=== PATIENT | male | born 1960 | race Caucasian/White ===

== ENCOUNTER 2017-10-19 20:25 | Emergency (ER) | payer MEDICARE, OTHER ==
[~2017-10-19] VITALS: Ht 193 cm; Wt 136.1 kg
[~2017-10-19 20:25] MED LIST: AMOX1TAB61 PO; DIAZ5TAB4 PO; FENT1PAT21 TP; GABA600T14 PO; METF500T4 PO; MODA200T2 PO; OLME1TAB25 PO; [UNRECOGNIZED DRUG - CODE] BC
--- NOTE | 2017-10-19 21:42 | PHYS DOC ---
Past Medical History Past Medical History: COPD, Hypertension Additional Past Medical Histor: CHRONIC BACK PAIN Past Surgical History: Appendectomy, Tonsillectomy Additional Past Surgical Histo: Lumbar; Right foot Smoking: Cigarettes Alcohol Use: Occasionally Drug Use: None Social History Narrative: Lives with daughter Adult General Chief Complaint Chief Complaint: SYNCOPE HPI HPI Patient is a 57 year old male who presents with daughter for left ankle pain and swelling. He was originally put into the fast track area however he then gave a history that he passed out today earlier. He was then transferred to the acute side for further evaluation. However patient arrived to the acute side he refused all other evaluation except for the left ankle. He states that at noon today he was at quick trip with his daughter was going down one aisle and I'll she was in another part of the facility when he felt lightheaded and then he "went down". He is unsure if he went completely out or if he did -was only for seconds. He's been complaining of left ankle pain and swelling since with it increasing. Hence why he waited until hours later to present. He states he's had a cough and cold with some congestion for at least a week. But no increase in his baseline shortness of air from his emphysema. He has not been coughing up any blood. He's had no known fever. No nausea vomiting or diarrhea. No burning or blood in his urine. No recent travel. No headache either prior to or after the event. No chest pain either prior to after the event. He is followed by Dr. Philip and actually seen by him one and half weeks ago for routine visit and lab. Review of Systems Review of Systems Constitutional: Denies fever or chills Eyes: Denies change in visual acuity, redness, or eye pain HENT: POS nasal congestion or sore throat Respiratory: POS cough but no increase in shortness of breath Cardiovascular: No chest pain GI: Denies abdominal pain, nausea, vomiting, bloody stools or diarrhea : Denies dysuria or hematuria Musculoskeletal: Denies back pain or neck pain. Has left ankle pain and swelling. Integument: Denies rash or skin lesions Neurologic: Denies headache, focal weakness or sensory changes All other systems were reviewed and found to be within normal limits, except as documented in this note. Allergies Allergies Allergies Coded Allergies Type Severity Reaction Last Updated Verified No Known Drug Allergies 11/07/14 No Physical Exam Physical Exam Constitutional: Well developed, well nourished, no acute distress, non-toxic appearance. HENT: Normocephalic, atraumatic, bilateral external ears normal, oropharynx moist, no oral exudates, nose normal. Eyes: PERRLA, EOMI, conjunctiva normal, no discharge. Neck: Normal range of motion, no tenderness, supple, no stridor. Cardiovascular:Heart rate regular rhythm, no murmur Lungs & Thorax: Bilateral breath sounds coarse to auscultation. No active wheezing. Rhonchi noted. Abdomen: Bowel sounds normal, soft, no tenderness, no masses, no pulsatile masses. Skin: Warm, dry, no erythema, no rash. Back: No tenderness, no CVA tenderness. Extremities: POS tenderness to left ankle, no cyanosis, POS ecchymosis noted and swelling; bilateral non pitting edema and chronic venous stasis changes. NVI distally; normal cap refill. Neurologic: Alert and oriented X 3, normal motor function, normal sensory function, no focal deficits noted. Psychologic: Affect normal, judgement normal, mood normal. Current Patient Data Vital Signs Vital Signs Date Time Temp Pulse Resp B/P (MAP) Pulse Ox O2 Delivery O2 Flow Rate FiO2 10/19/17 21:11 98.1 108 22 175/98 (123) 93 Nasal Cannula 3.0 98.1 Radiology/Procedures Radiology/Procedures Xray left ankle: interpreted by myself at 2130 PM with fracture of distal fibula ; spiral; with widening of ankle motrice Xray left foot: interpreted by myself at 2130 PM with ? avulsion fracture of cuboid vs old injury Course & Med Decision Making Course & Med Decision Making Patient initially seen in fast track. It was discovered that he originally passed out at noon and that's what led to ankle injury. He was initially seen by PA and then moved over to acute side. I assumed care upon presentation to room 12. He adamantly declines all treatment or evaluation "except for an xray" . Xray was already ordered in fast track. I went through with the patient and daughter the potential severe etiologies of a syncopal episode. He again was adamant about "I don't need to have anything else checked out discussing my doctor on Sunday". I did speak with DR Philip personally (at 2200 PM) and he is aware of my concerns and that patient is declining any other evaluation. He will see him on Sunday. Daughter was present during all of my discussions and understands return and follow up instructions. Splint placed (OCL; stirrup and posterior) with splint care instructions placed. Post splint check: NVI distally; normal cap refill. Normal sensation. Transient ischemic attack (particularly in older adults), Migraine, Panic attack and anxiety,Psychogenic nonepileptic seizure, Transient global amnesia ( rare before the age of 50 years), Narcolepsy with cataplexy, Paroxysmal movement disorders, cardiac dysrhythmias, electrolyte imbalances. Pulmonary emboli, sepsis These concerns of potential etiologies were explained to patient and family. He agains declines all evaluation except for the ankle. He did sign a refusal of partial care. I have spoken with the patient and/or caregivers. I have explained the patient' s condition, diagnosis and treatment plan based on the information available to me at this time. I have answered the patient's and/or caregiver's questions and addressed any concerns. The patient and/or caregivers have as good an understanding of the patient's diagnosis, condition and treatment plan as can be expected at this point. The patient's condition is stable and appropriate for discharge from the emergency department. The patient will pursue further outpatient evaluation with the primary care physician or other designated or consulting physician as outlined in the discharge instructions. The patient and/or caregivers are agreeable to this plan of care and follow-up instructions have been explained in detail. The patient and/or caregivers have received these instructions in written format and have expressed an understanding of the discharge instructions. The patient and/or caregivers are aware that any significant change in condition or worsening of symptoms should prompt an immediate return to this or the closest emergency department or a call to 911. PATIENT AND DAUGHTER UNDERSTANDS THAT HE CAN RETURN AT ANY TIME OVER THE WEEKEND IF ANY SYMPTOMS CHANGE OR WORSEN. Dragon Disclaimer Dragon Disclaimer This electronic medical record was generated, in whole or in part, using a voice recognition dictation system. Departure Departure Impression: Primary Impression: Fall Additional Impression: Ankle fracture, lateral malleolus, closed Disposition: 07 AGAINST MEDICAL ADVICE Referrals: NE PHILIP MD (PCP) Patient Instructions: Ankle Fracture, Syncope Additional Instructions: YOU HAVE DECLINED ANY INVESTIGATION INTO YOUR PASSING OUT SPELL. I DID SPEAK WITH DR PHILIP AND HE WANTS YOU TO CALL HIS OFFICE ON SUNDAY. KEEP THE LEG ICED AND ELEVATED. DO NOT WALK OR BEAR WEIGHT ON THAT ANKLE-IT IS UNSTABLE. IF YOU WORSEN AT ALL OVER THE WEEKEND PLEASE RETURN IMMEDIATELY. Scripts Tramadol Hcl (TRAMADOL HCL) 50 Mg Tablet 50 MG PO Q4H Y for PAIN, #30 TAB Prov: SAPNA GONZALEZ MD 10/19/17 Problem Qualifiers Primary Impression: Fall Encounter type: initial encounter Qualified Codes: W19.XXXA - Unspecified fall, initial encounter Additional Impression: Ankle fracture, lateral malleolus, closed Encounter type: initial encounter Fracture alignment: nondisplaced Laterality: left Qualified Codes: S82.65XA - Nondisplaced fracture of lateral malleolus of left fibula, initial encounter for closed fracture SAPNA GONZALEZ MD Oct 19, 2017 21:42
[2017-10-19 22:00] VITALS: BP 177/94
[2017-10-19] MEDS ORDERED: TRAM50TA PO (22:06)
--- NOTE | 2017-10-20 08:28 | RAD ---
Left foot 3 views. History: Rolled ankle, pain 3 views were taken of the left foot. There is not evidence of an acute fracture of the foot or osseous abnormality. There is mild arthritis at the first metatarsal phalangeal joint. There is a fracture of the distal fibula. Impression: 1. Fracture of the fibula. 2. No foot fracture noted.
--- NOTE | 2017-10-20 08:30 | RAD ---
Left ankle 3 views. History: Rolled ankle, pain 3 views were taken of the left ankle. There is a fracture the distal fibula. There is evidence of ligamentous injury medially. There is mild lateral displacement of the talus relative to the tibia on the AP view. Impression: 1. Soft tissue swelling. 2. Fracture distal fibula which is obliquely with minimal displacement. 3. Ligamentous injury medially with slight lateral displacement of the talus relative to the tibia.
== END 2017-10-19 22:09 | disposition left against medical advice (07) ==
LOC: ER 20:25
DX: S82.65XA Nondisplaced fracture of lateral malleolus of left fibula, initial encounter for closed fracture (principal); R55 Syncope and collapse; I10 Essential (primary) hypertension; G89.29 Other chronic pain; F17.210 Nicotine dependence, cigarettes, uncomplicated; J43.9 Emphysema, unspecified; W18.39XA Other fall on same level, initial encounter; Y93.89 Activity, other specified; Y92.89 Other specified places as the place of occurrence of the external cause; Y99.8 Other external cause status
CPT/HCPCS: 29515; 73610; 73630; 99284-25

== ENCOUNTER → 2017-10-30 | Day surgery (SDC) | payer MEDICARE, OTHER ==
[2017-10-19 22:00] VITALS: BP 177/94
--- NOTE | 2017-10-29 17:08 | PDOC1 ---
History and Physical Date of Admission Date of Admission DATE: 10/30/17 Identification/Chief Complaint Chief Complaint left ankle pain Problems: Source Source: Chart review History of Present Illness History of Present Illness The patient is a 57 year old male with left ankle pain. He had an episode of syncope at [facility] on 10.19.17, sustaining an inversion injury to his ankle and landing on the lateral aspect of his ankle. He refused treatment of the syncope at the ER, only allowing treatment of his ankle. He says he had been sick and somewhat lightheaded and thinks that because the syncopal episode. The patient smokes 1/2 pack of cigarettes per day. X-rays at [facility] on 10.19.17 showed a fractured distal fibula and ligamentous injury medially with slight lateral displacement of the talus relative to the tibia. He presents today non-weight bearing on his left lower extremity with a splint and crutches. Today, he rates the pain at an 8/10. Rest improves his pain. Family History Family History: Cancer, Heart Disease Social History Smoke: <1 pack per day ALCOHOL: none Drugs: None Current Medications Current Medications Active Scripts Active Tramadol Hcl 50 Mg Tablet 50 Mg PO Q4H PRN Reported Advil (Ibuprofen) 200 Mg Tablet 800 Mg PO Ventolin Hfa Inhaler (Albuterol Sulfate) 18 Gm Hfa.aer.ad 2 Puff INH Q4HRS Gralise (Gabapentin) 600 Mg Tab.er.24h 1,800 Mg PO TID Benicar Hct 40-25 Mg Tablet (Olmesartan/Hydrochlorothiazide) 1 Each Tablet 1 Tab PO DAILY Metformin Hcl 500 Mg Tablet 1 Tab PO BID FENTANYL 100mcg/hr (Fentanyl) 1 Each Patch.td72 1 Patch TP Q3DAYS Allergies Allergies: Coded Allergies: No Known Drug Allergies (Unverified , 11/07/14) Physical Exam General: Alert, Oriented X3, Cooperative HEENT: Atraumatic, EOMI Lungs: Normal air movement Heart: RRR Abdomen: Soft Extremities: No clubbing, No cyanosis, Normal pulses, Other (LEFT ANKLE: Splint removed. Extensive ecchymosis and mild to moderate swelling of ankle. The skin still has wrinkling. Tenderness to palpation over deltoid ligament and fracture site. Neurovascularly intact distally. Placed in splint. Skin intact over the fracture site. Palpable dorsalis pedis pulse intact. Light touch sensation is intact.) Skin: No rashes, No breakdown, No significant lesion Neuro: Normal speech, Sensation intact Psych/Mental Status: Mental status NL, Mood NL VTE Prophylaxis Ordered VTE Prophylaxis Devices: Yes VTE Pharmacological Prophylaxi: Yes Assessment/Plan Assessment/Plan He has a displaced fracture with widening of medial clear space. Dr. Avendaño recommended surgical fixation of lateral malleolus, and we discussed potential for open deltoid ligament repair or possible syndesmosis fixation. We discussed potential risks of surgery such as bleeding, blood clots, scarring, hardware removal, nonunion or malunion, or other potential surgical or anesthetic complications. I discussed that he has increased risks of surgical fixation, which include the increased risk of infection and slow wound healing due to the diabetes, and increased risk of infection and slow wound healing and slow bone healing due to the smoking. I recommended smoking cessation. All of his questions about surgery were answered and he desires to proceed. CAMILA ALONZO Oct 29, 2017 17:08
[~2017-10-30] VITALS: Ht 193 cm; Wt 136.1 kg
[~2017-10-30] MED LIST changes: +AZIT250T6 PO; +CEFP200T PO; +CEPH500C PO; +DULO60CA44 PO; +GABA800T2 PO; +HYDROmorphone 2 MG/ML VIAL IV PRN; +IBUP200T58 PO; +IV RINGERS,LACTATED 1000ML 1,000 ML IV SCH; +LEVO2TAB3 PO; +LIDOCAINE 1% PF 2 ML VIAL. ID PRN; +LIDOCAINE 2% PF Vial for OR 5 ML VIAL. ONE; +MORPHINE SULFATE 2 MG/ML DISP.SYRIN. IV PRN; +ONDANSETRON PF 4 MG/2 ML VIAL. IV PRN; +PRED-220 PO; +PROCHLORPERAZINE 10 MG/2 ML VIAL. IV PRN; +PROM25TA10 PO; +PROPOFOL 0 ML IV ONE; +TRAM50TA PO; +VENTOLIN HFA18 GM INH; +fentaNYL PF VIAL 100 MCG/2 ML VIAL IV PRN; +fentaNYL PF VIAL 100 MCG/2 ML VIAL ONE
== END ==
LOC: SURG 10:38
PROVIDERS: ATTEND Orthopaedic Surgery
DX: S82.892A Other fracture of left lower leg, initial encounter for closed fracture (principal); Z53.8 Procedure and treatment not carried out for other reasons; F17.210 Nicotine dependence, cigarettes, uncomplicated; E66.9 Obesity, unspecified; X58.XXXA Exposure to other specified factors, initial encounter; Y93.89 Activity, other specified; Y92.89 Other specified places as the place of occurrence of the external cause; Y99.8 Other external cause status; J44.9 Chronic obstructive pulmonary disease, unspecified; Z87.01 Personal history of pneumonia (recurrent); Z98.890 Other specified postprocedural states; Z83.3 Family history of diabetes mellitus
CPT/HCPCS: J2704; J3010; J2001

== ENCOUNTER 2017-11-06 12:13 | Inpatient (IN) | payer OTHER, MEDICARE ==
[~2017-11-06] VITALS: Ht 190.5 cm; Wt 139.3 kg
[~2017-11-06 12:13] MED LIST changes: -AZIT250T6 PO; -CEFP200T PO; -CEPH500C PO; -DULO60CA44 PO; -GABA800T2 PO; -HYDROmorphone 2 MG/ML VIAL IV PRN; -IV RINGERS,LACTATED 1000ML 1,000 ML IV SCH; -LEVO2TAB3 PO; -LIDOCAINE 1% PF 2 ML VIAL. ID PRN; -LIDOCAINE 2% PF Vial for OR 5 ML VIAL. ONE; -MORPHINE SULFATE 2 MG/ML DISP.SYRIN. IV PRN; -ONDANSETRON PF 4 MG/2 ML VIAL. IV PRN; -PRED-220 PO; -PROCHLORPERAZINE 10 MG/2 ML VIAL. IV PRN; -PROM25TA10 PO; -PROPOFOL 0 ML IV ONE; -fentaNYL PF VIAL 100 MCG/2 ML VIAL IV PRN; -fentaNYL PF VIAL 100 MCG/2 ML VIAL ONE
--- NOTE | 2017-11-06 12:26 | PHYS DOC ---
Past Medical History Past Medical History: COPD, Hypertension Additional Past Medical Histor: CHRONIC BACK PAIN Past Surgical History: Appendectomy, Tonsillectomy Additional Past Surgical Histo: Lumbar; Right foot Alcohol Use: Occasionally Drug Use: None Adult General Chief Complaint Chief Complaint: SHORTNESS OF BREATH [facility] HPI Patient is a 57 year old male who presents with shortness of breath, not feeling well. He states his shortness of breath going on for several weeks and then last night it started getting worse. He states he's having a nonproductive rattly-type cough. He's been using his albuterol inhaler without any relief denies any chest pain fevers chills nausea or vomiting. He took of his fentanyl patch secondary to his chronic back pain and didn't have a chance replace this morning before coming in to the ER. He states his back hurts exactly same as it usually does denies any numbness or weakness in his arms or legs. Review of Systems Review of Systems Constitutional: Denies fever or chills [] Eyes: Denies change in visual acuity, redness, or eye pain [] HENT: Denies nasal congestion or sore throat [] Respiratory: Positive for cough and shortness of breath [] Cardiovascular: No additional information not addressed in HPI [] GI: Denies abdominal pain, nausea, vomiting, bloody stools or diarrhea [] : Denies dysuria or hematuria [] Musculoskeletal: Denies joint pain, positive for chronic back pain Integument: Denies rash or skin lesions [] Neurologic: Denies headache, focal weakness or sensory changes [] Endocrine: Denies polyuria or polydipsia [] All other systems were reviewed and found to be within normal limits, except as documented in this note. Current Medications Current Medications Current Medications Medications (Trade) Dose Ordered Sig/Sally Start Time Stop Time Status Last Admin Dose Admin Albuterol/ Ipratropium (Duoneb) 3 ml 1X ONCE 11/06/17 12:45 11/06/17 12:46 DC 11/06/17 12:45 3 ML Fentanyl Citrate (Fentanyl 2ml Vial) 50 mcg PRN Q15MIN PRN 11/06/17 12:45 11/07/17 12:44 11/06/17 14:30 50 MCG Allergies Allergies Allergies Coded Allergies Type Severity Reaction Last Updated Verified No Known Drug Allergies 11/07/14 No Physical Exam Physical Exam Constitutional: Well developed, well nourished, no acute distress, non-toxic appearance. [] HENT: Normocephalic, atraumatic, bilateral external ears normal, oropharynx moist, no oral exudates, nose normal. [] Eyes: PERRLA, EOMI, conjunctiva normal, no discharge. [] Neck: Normal range of motion, no tenderness, supple, no stridor. [] Cardiovascular:Heart rate regular rhythm, no murmur [] Lungs & Thorax: Bilateral breath sounds coarse with decreased air movement at the bases [] Abdomen: Bowel sounds normal, soft, no tenderness, no masses, no pulsatile masses. [] Skin: Warm, dry, no erythema, no rash. [] Back: No tenderness, no CVA tenderness. [] Extremities: No tenderness, no cyanosis, no clubbing, ROM intact, no edema. [] Neurologic: Alert and oriented X 3, normal motor function, normal sensory function, no focal deficits noted. [] Psychologic: Affect normal, judgement normal, mood normal. [] Current Patient Data Vital Signs Vital Signs Date Time Temp Pulse Resp B/P (MAP) Pulse Ox O2 Delivery O2 Flow Rate FiO2 11/06/17 13:17 101 178/80 (112) 93 Nasal Cannula 3.0 11/06/17 12:19 97.6 24 97.6 Lab Values Laboratory Tests Test 11/06/17 12:45 11/06/17 13:05 11/06/17 13:10 Sodium Level 133 mmol/L (136-145) L Potassium Level 3.8 mmol/L (3.5-5.1) Chloride Level 91 mmol/L (98-107) L Carbon Dioxide Level 31 mmol/L (21-32) Anion Gap 11 (6-14) Blood Urea Nitrogen 10 mg/dL (8-26) Creatinine 0.6 mg/dL (0.7-1.3) L Estimated GFR (Cockcroft-Gault) 137.9 Glucose Level 102 mg/dL (70-99) H Calcium Level 8.9 mg/dL (8.5-10.1) Magnesium Level 1.8 mg/dL (1.8-2.4) Total Bilirubin 2.1 mg/dL (0.2-1.0) H Direct Bilirubin 0.5 mg/dL (0.0-0.2) H Aspartate Amino Transferase (AST) 25 U/L (15-37) Alanine Aminotransferase (ALT) 15 U/L (16-63) L Alkaline Phosphatase 73 U/L (46-116) Creatine Kinase 69 U/L (39-308) Creatine Kinase MB (Mass) 2.0 ng/mL (0.0-3.6) Creatine Kinase MB Relative Index % (0-4) Troponin I Quantitative < 0.017 ng/mL (0.000-0.055) GG-Lpw-I-Type Natriuretic Peptide 279 pg/mL (0-124) H Total Protein 7.9 g/dL (6.4-8.2) Albumin 3.5 g/dL (3.4-5.0) Lipase 98 U/L (73-393) Urine Collection Type Unknown Urine Color Dk yellow Urine Clarity Clear Urine pH 7.5 Urine Specific [place] 1.015 Urine Protein 100 mg/dL (NEG-TRACE) Urine Glucose (UA) Negative mg/dL (NEG) Urine Ketones (Stick) >=80 mg/dL (NEG) Urine Blood Trace (NEG) Urine Nitrite Negative (NEG) Urine Bilirubin Small (NEG) Urine Urobilinogen Dipstick 2.0 mg/dL (0.2 mg/dL) Urine Leukocyte Esterase Negative (NEG) Urine RBC 3-5 /HPF (0-2) Urine WBC 0 /HPF (0-4) Urine Squamous Epithelial Cells None /LPF Urine Bacteria 0 /HPF (0-FEW) Urine Opiates Screen Pos (NEG) Urine Methadone Screen Neg (NEG) Urine Barbiturates Neg (NEG) Urine Phencyclidine Screen Neg (NEG) Urine Amphetamine/Methamphetamine Neg (NEG) Urine Benzodiazepines Screen Neg (NEG) Urine Cocaine Screen Neg (NEG) Urine Cannabinoids Screen Neg (NEG) Urine Ethyl Alcohol Neg (NEG) White Blood Count 10.7 x10^3/uL (4.0-11.0) Red Blood Count 6.79 x10^6/uL (4.30-5.70) H Hemoglobin 21.3 g/dL (13.0-17.5) H Hematocrit 64.2 % (39.0-53.0) H Mean Corpuscular Volume 95 fL (79-100) Mean Corpuscular Hemoglobin 31 pg (25-35) Mean Corpuscular Hemoglobin Concent 33 g/dL (31-37) Red Cell Distribution Width 19.4 % (11.5-14.5) H Platelet Count 150 x10^3/uL (140-400) Neutrophils (%) (Auto) 81 % (31-73) H Lymphocytes (%) (Auto) 10 % (24-48) L Monocytes (%) (Auto) 8 % (0-9) Eosinophils (%) (Auto) 1 % (0-3) Basophils (%) (Auto) 1 % (0-3) Neutrophils # (Auto) 8.7 x10^3uL (1.8-7.7) H Lymphocytes # (Auto) 1.0 x10^3/uL (1.0-4.8) Monocytes # (Auto) 0.9 x10^3/uL (0.0-1.1) Eosinophils # (Auto) 0.1 x10^3/uL (0.0-0.7) Basophils # (Auto) 0.1 x10^3/uL (0.0-0.2) Laboratory Tests 11/06/17 13:10 Laboratory Tests 11/06/17 12:45 EKG EKG EKG shows sinus tachycardia rate of 103 bpm without any concerning ST elevations or T-wave inversions, artifact noted throughout the EKG, QTC 447 will sinus, as interpreted by me. Radiology/Procedures Radiology/Procedures [facility] [address] [place] [address] IMAGING REPORT Signed PATIENT: MARV BRIAN ACCOUNT: [id number] : 1960 LOCATION: ER AGE: 57 SEX: M EXAM STATUS: REG ER ORD. PHYSICIAN: SONAL VALENCIA MD REASON: soa PROCEDURE: PORTABLE CHEST 1V Portable AP upright view CXR: Clinical indications: Shortness of air for 2 weeks which became more acute today. History of hypertension, COPD and diabetes. Comparison: November 09, 2014. Findings: Chronic interstitial lung disease or chronic bronchitis is seen. This is stable. No new lung consolidation or pleural effusion or Peng B lines or lung mass or pneumothorax is seen. The heart size, pulmonary vasculature, mediastinum and both coleman are stable. Impression: No new radiographic abnormality is seen. Chronic bronchitis or chronic interstitial lung disease. DICTATED and SIGNED BY: JUNG BRANNON MD DATE: 11/06/17 [id number] CC: NE BLAND MD; SONAL VALENCIA MD ~ Impressions: COPD exacerbation Chronic back pain Tobacco abuse Dehydration Course & Med Decision Making Course & Med Decision Making Pertinent Labs and Imaging studies reviewed. (See chart for details) EKG does not show any acute abnormality's is similar one performed previously, started on DuoNeb nebs Solu-Medrol and will add azithromycin. He is also smokes a pack per day so we'll give him a nicotine patch. Spoke with his primary care physician is agreeable to admitting in the hospital. Stable condition at this time. Dragon Disclaimer Dragon Disclaimer This electronic medical record was generated, in whole or in part, using a voice recognition dictation system. Departure Departure Impression: Primary Impression: COPD exacerbation Disposition: ADMITTED INPATIENT Admitting Physician: Ne Bland Condition: STABLE Referrals: NE BLAND MD (PCP) SONAL VALENCIA MD Nov 06, 2017 12:26
[2017-11-06] MEDS ORDERED: IPRATRPIUM/ALBUTEROL 0.5/2.5MG 3 ML NEBU. NEB ONE (12:45)
[2017-11-06 13:05] LABS: CALCIUM 8.9 mg/dL (8.5-10.1); CREATININE 0.6 mg/dL (0.7-1.3); GFR 137.9; POTASSIUM 3.8 mmol/L (3.5-5.1)
[2017-11-06 13:10] LABS: ALBUMIN 3.5 g/dL (3.4-5.0); DIRECT BILIRUBIN 0.5 mg/dL (0.0-0.2); MAGNESIUM 1.8 mg/dL (1.8-2.4); TOTAL BILIRUBIN 2.1 mg/dL (0.2-1.0); TOTAL PROTEIN 7.9 g/dL (6.4-8.2)
[2017-11-06] MEDS: fentaNYL PF VIAL 100 MCG/2 ML VIAL IV PRN ×5 (13:11→21:40)
[2017-11-06 13:27] LABS: BILIRUBIN,URINE SMALL (NEG); GLUCOSE,URINE NEGATIVE (NEG); NITRITE,URINE NEGATIVE (NEG); PH,URINE 7.5; PROTEIN,URINE 100 mg/dL (NEG-TRACE)
[2017-11-06 13:30] LABS: CREATINE KINASE 69 U/L (39-308)
[2017-11-06 13:32] LABS: BASO # 0.1 x10^3/uL (0.0-0.2); BASO % 1 % (0-3); EOS % 1 % (0-3); HEMATOCRIT 64.2 % (39.0-53.0); LYMPH % 10 % (24-48); MEAN CORPUSCULAR HEMOGLOBIN 31 pg (25-35); MEAN CORPUSCULAR HGB CONC 33 g/dL (31-37); MEAN CORPUSCULAR VOLUME 95 fL (79-100); MONO % 8 % (0-9); NEUT % 81 % (31-73); PLATELET COUNT 150 x10^3/uL (140-400); RED BLOOD COUNT 6.79 x10^6/uL (4.30-5.70); RED CELL DISTRIBUTION WIDTH 19.4 % (11.5-14.5); WHITE BLOOD COUNT 10.7 x10^3/uL (4.0-11.0)
[2017-11-06 13:32] LABS: BARBITURATES NEG (NEG); BENZODIAZEPINES NEG (NEG); CANNABINOIDS NEG (NEG); COCAINE NEG (NEG); METHADONE NEG (NEG); OPIATES POS (NEG); PHENCYCLIDINE NEG (NEG)
--- NOTE | 2017-11-06 13:37 | RAD ---
Portable AP upright view CXR: Clinical indications: Shortness of air for 2 weeks which became more acute today. History of hypertension, COPD and diabetes. Comparison: November 09, 2014. Findings: Chronic interstitial lung disease or chronic bronchitis is seen. This is stable. No new lung consolidation or pleural effusion or Peng B lines or lung mass or pneumothorax is seen. The heart size, pulmonary vasculature, mediastinum and both coleman are stable. Impression: No new radiographic abnormality is seen. Chronic bronchitis or chronic interstitial lung disease.
[2017-11-06 13:41] LABS: HEMOGLOBIN 21.3 g/dL (13.0-17.5)
[2017-11-06 13:47] LABS: BACTERIA,URINE 0 /HPF (0-FEW); WBC,URINE 0 /HPF (0-4)
--- NOTE | 2017-11-06 13:52 | EKG ---
[facility] [address] [place] [address] Test Date: 2017-11-06 Test Time: 12:24:39 Pat Name: MARV BRIAN Department: Room: Gender: M Tonal Regulator: : 1960 Requested By: SONAL VALENCIA Order Number: [id number] Reading MD: Mario Epstein Measurements Intervals [place] Rate: 103 P: 66 DE: 190 QRS: -130 QRSD: 96 T: 37 QT: 340 QTc: 447 Interpretive Statements SINUS TACHYCARDIA VENTRICULAR PREMATURE COMPLEX(ES) LEFT ATRIAL ABNORMALITY INDETERMINATE AXIS QRS(T) CONTOUR ABNORMALITY CANNOT RULE OUT ANTEROSEPTAL MYOCARDIAL DAMAGE ABNORMAL ECG Electronically Signed On 11-16-2017 9:10:40 NEWS ANCHOR by Mario Epstein
[2017-11-06] MEDS ORDERED: methylPREDNISolone SOD SUCC PF 125 MG/2 ML VIAL. IV ONE (14:00)
[2017-11-06] MEDS ORDERED: IV NORMAL SALINE 1000ML BAG 1,000 ML IV ONE (14:00)
[2017-11-06] MEDS ORDERED: ONDANSETRON PF 4 MG/2 ML VIAL. IV PRN (14:30)
[2017-11-06] MEDS ORDERED: ALBUTEROL SULFATE 2.5 MG/3 ML NEBU. NEB PRN ×3 (14:30→16:45)
[2017-11-06] MEDS ORDERED: NICOTINE 21MG PATCH. TD PRN (15:00)
[2017-11-06] MEDS ORDERED: AZITHRMYCN 500MG IVPB FOR OMNI 250 ML IV ONE (15:00)
[2017-11-06 15:28] VITALS: BP 153/86
[2017-11-06] MEDS ORDERED: CEPH500C PO (15:45)
[2017-11-06] MEDS ORDERED: DULO60CA44 PO (15:45)
[2017-11-06] MEDS ORDERED: LEVO2TAB3 PO (15:45)
[2017-11-06] MEDS ORDERED: PROM25TA10 PO (15:45)
[2017-11-06] MEDS ORDERED: GABA800T2 PO (15:45)
[2017-11-06] MEDS ORDERED: IBUPROFEN 200 MG TABLET. PO PRN (16:15)
[2017-11-06] MEDS ORDERED: IPRATRPIUM/ALBUTEROL 0.5/2.5MG 3 ML NEBU. NEB SCH (16:15)
[2017-11-06] MEDS ORDERED: PROMETHAZINE 12.5 MG TABLET. PO PRN (16:45)
[2017-11-06] MEDS ORDERED: CEPHALEXIN 500 MG PO SCH (17:00)
[2017-11-06] MEDS ORDERED: fentaNYL 100MCG/HR PATCH 1 PATCH PATCH TD SCH (17:00)
[2017-11-06] MEDS: methylPREDNISolone SOD SUCC PF 125 MG/2 ML VIAL. IV SCH ×2 (17:00→21:41)
[2017-11-06] MEDS: GABAPENTIN 400 MG CAPSULE. PO SCH ×2 (17:12→21:41)
[2017-11-06] MEDS: metFORMIN 500 MG TABLET PO SCH (17:12)
[2017-11-06] MEDS: traMADol 50 MG TABLET PO PRN (17:13)
[2017-11-06] MEDS: cefTRIAXone IV Push 1 GM VIAL. IVP SCH (17:53)
[2017-11-06] MEDS ORDERED: AZITHROMYCIN 500 MG in IV NORMAL SALINE 250ML 250 ML IV SCH (18:00)
[2017-11-06 19:00] VITALS: BP 152/98
[2017-11-06] MEDS ORDERED: NON FORMULARY ITEM (Albuterol Sulfate (Ventolin Hfa Inhaler) 2 PUFF) INH SCH (20:00)
[2017-11-06] MEDS: IPRATRPIUM/ALBUTEROL 0.5/2.5MG 3 ML NEBU. NEB SCH (20:46)
[2017-11-06] MEDS: LEVORPHANOL TARTRATE PO SCH (21:00)
[2017-11-06 23:00] VITALS: BP 142/80
[2017-11-07 03:00] VITALS: BP 142/85
[2017-11-07 03:14] LABS: BASO % 0 % (0-3); EOS % 0 % (0-3); HEMATOCRIT 61.5 % (39.0-53.0); HEMOGLOBIN 20.3 g/dL (13.0-17.5); LYMPH # 0.5 x10^3/uL (1.0-4.8); LYMPH % 6 % (24-48); MEAN CORPUSCULAR HEMOGLOBIN 32 pg (25-35); MEAN CORPUSCULAR HGB CONC 33 g/dL (31-37); MEAN CORPUSCULAR VOLUME 96 fL (79-100); MONO % 3 % (0-9); NEUT % 91 % (31-73); PLATELET COUNT 146 x10^3/uL (140-400); RED BLOOD COUNT 6.42 x10^6/uL (4.30-5.70); RED CELL DISTRIBUTION WIDTH 19.7 % (11.5-14.5)
[2017-11-07 03:38] LABS: CALCIUM 8.6 mg/dL (8.5-10.1); CREATININE 0.8 mg/dL (0.7-1.3); GFR 98.9; POTASSIUM 4.3 mmol/L (3.5-5.1)
[2017-11-07] MEDS: ALBUTEROL SULFATE 2.5 MG/3 ML NEBU. NEB SCH ×6 (04:00→19:14)
[2017-11-07] MEDS: methylPREDNISolone SOD SUCC PF 125 MG/2 ML VIAL. IV SCH ×3 (06:27→20:57)
[2017-11-07] MEDS: traMADol 50 MG TABLET PO PRN ×3 (06:36→17:36)
[2017-11-07 07:00] VITALS: BP 134/80
[2017-11-07] MEDS: metFORMIN 500 MG TABLET PO SCH ×2 (07:46→17:36)
[2017-11-07] MEDS: IPRATRPIUM/ALBUTEROL 0.5/2.5MG 3 ML NEBU. NEB SCH ×4 (08:06→20:00)
--- NOTE | 2017-11-07 08:21 | PDOC ---
GENERAL General: see dictated H&P. Problems: VITAL SIGNS Vital Signs: Vital Signs Date Time Temp Pulse Resp B/P (MAP) Pulse Ox O2 Delivery O2 Flow Rate FiO2 11/07/17 07:47 Room Air 11/07/17 07:00 98.2 82 20 134/80 (98) 91 2.5 98.2 I & O I & O Intake and Output 11/07/17 06:59 Intake Total 780 ml Balance 780 ml Intake Oral 780 ml # Voids 1 ALLERGIES Allergies: Allergies Coded Allergies Type Severity Reaction Last Updated Verified No Known Drug Allergies 11/07/14 No MEDS Medications: Current Medications Medications (Trade) Dose Ordered Sig/Sally Start Time Stop Time Status Last Admin Dose Admin Albuterol Sulfate (Ventolin Neb Soln) 2.5 mg Q4HRS 11/06/17 20:00 Albuterol/ Ipratropium (Duoneb) 3 ml PRN Q4HRS 11/06/17 16:15 11/06/17 16:31 DC 11/06/17 16:18 3 ML Azithromycin (Zithromax) 500 mg DAILY 11/07/17 09:00 Azithromycin 500 mg/Sodium Chloride 250 ml @ 250 mls/hr Q24H 11/06/17 18:00 11/07/17 04:26 DC Ceftriaxone Sodium 1 gm/ Dextrose 50 ml @ 100 mls/hr Q24H 11/06/17 16:15 UNV Ceftriaxone Sodium (Rocephin) 1 gm Q24H 11/06/17 17:00 11/06/17 17:53 1 GM Duloxetine HCl (Cymbalta) 60 mg DAILY 11/07/17 09:00 Fentanyl (Duragesic 100mcg/Hr Patch) 1 patch Q3DAYS 11/06/17 17:00 11/06/17 17:13 1 PATCH Fentanyl Citrate (Fentanyl 2ml Vial) 50 mcg PRN Q2HR PRN 11/06/17 14:30 11/07/17 14:29 11/06/17 21:40 50 MCG Gabapentin (Neurontin) 800 mg TID 11/06/17 16:45 11/06/17 21:41 800 MG Hydrochlorothiazide (Hydrodiuril) 25 mg DAILY 11/07/17 09:00 Ibuprofen (Motrin) 800 mg PRN TID PRN 11/06/17 16:15 Losartan Potassium (Cozaar) 100 mg DAILY 11/07/17 09:00 Metformin HCl (Glucophage) 500 mg BIDWMEALS 11/06/17 17:00 11/07/17 07:46 500 MG Methylprednisolone Sodium Succinate (SOLU-Medrol 125MG VIAL) 80 mg Q8HRS 11/06/17 17:00 11/07/17 06:27 80 MG Nicotine (Nicoderm Cq 21mg) 1 patch PRN DAILY PRN 11/06/17 15:00 11/06/17 17:12 1 PATCH Non-Formulary Medication 4 mg TID 11/06/17 21:00 UNV Ondansetron HCl (Zofran) 4 mg PRN Q8HRS PRN 11/06/17 14:30 11/07/17 14:29 Promethazine HCl (Phenergan) 25 mg PRN BID PRN 11/06/17 16:45 Sodium Chloride 1,000 ml @ 1,000 mls/hr 1X ONCE 11/06/17 14:00 11/06/17 14:59 DC 11/06/17 14:28 1,000 MLS/HR Tramadol HCl (Ultram) 50 mg PRN Q4HRS PRN 11/06/17 16:15 11/07/17 06:36 50 MG LAB Lab: Laboratory Tests Test 11/06/17 12:45 11/06/17 13:05 11/06/17 13:10 11/06/17 16:42 Sodium Level 133 mmol/L (136-145) Potassium Level 3.8 mmol/L (3.5-5.1) Chloride Level 91 mmol/L (98-107) Carbon Dioxide Level 31 mmol/L (21-32) Anion Gap 11 (6-14) Blood Urea Nitrogen 10 mg/dL (8-26) Creatinine 0.6 mg/dL (0.7-1.3) Estimated GFR (Cockcroft-Gault) 137.9 Glucose Level 102 mg/dL (70-99) Calcium Level 8.9 mg/dL (8.5-10.1) Magnesium Level 1.8 mg/dL (1.8-2.4) Total Bilirubin 2.1 mg/dL (0.2-1.0) Direct Bilirubin 0.5 mg/dL (0.0-0.2) Aspartate Amino Transf (AST/SGOT) 25 U/L (15-37) Alanine Aminotransferase (ALT/SGPT) 15 U/L (16-63) Alkaline Phosphatase 73 U/L (46-116) Creatine Kinase 69 U/L (39-308) Creatine Kinase MB (Mass) 2.0 ng/mL (0.0-3.6) Creatine Kinase MB Relative Index % (0-4) Troponin I Quantitative < 0.017 ng/mL (0.000-0.055) BU-[id number]-Type Natriuretic Peptide 279 pg/mL (0-124) Total Protein 7.9 g/dL (6.4-8.2) Albumin 3.5 g/dL (3.4-5.0) Lipase 98 U/L (73-393) Urine Collection Type Unknown Urine Color Dk yellow Urine Clarity Clear Urine pH 7.5 Urine Specific [place] 1.015 Urine Protein 100 mg/dL (NEG-TRACE) Urine Glucose (UA) Negative mg/dL (NEG) Urine Ketones (Stick) >=80 mg/dL (NEG) Urine Blood Trace (NEG) Urine Nitrite Negative (NEG) Urine Bilirubin Small (NEG) Urine Urobilinogen Dipstick 2.0 mg/dL (0.2 mg/dL) Urine Leukocyte Esterase Negative (NEG) Urine RBC 3-5 /HPF (0-2) Urine WBC 0 /HPF (0-4) Urine Squamous Epithelial Cells None /LPF Urine Bacteria 0 /HPF (0-FEW) Urine Opiates Screen Pos (NEG) Urine Methadone Screen Neg (NEG) Urine Barbiturates Neg (NEG) Urine Phencyclidine Screen Neg (NEG) Urine Amphetamine/Methamphetamine Neg (NEG) Urine Benzodiazepines Screen Neg (NEG) Urine Cocaine Screen Neg (NEG) Urine Cannabinoids Screen Neg (NEG) Urine Ethyl Alcohol Neg (NEG) White Blood Count 10.7 x10^3/uL (4.0-11.0) Red Blood Count 6.79 x10^6/uL (4.30-5.70) Hemoglobin 21.3 g/dL (13.0-17.5) Hematocrit 64.2 % (39.0-53.0) Mean Corpuscular Volume 95 fL (79-100) Mean Corpuscular Hemoglobin 31 pg (25-35) Mean Corpuscular Hemoglobin Concent 33 g/dL (31-37) Red Cell Distribution Width 19.4 % (11.5-14.5) Platelet Count 150 x10^3/uL (140-400) Neutrophils (%) (Auto) 81 % (31-73) Lymphocytes (%) (Auto) 10 % (24-48) Monocytes (%) (Auto) 8 % (0-9) Eosinophils (%) (Auto) 1 % (0-3) Basophils (%) (Auto) 1 % (0-3) Neutrophils # (Auto) 8.7 x10^3uL (1.8-7.7) Lymphocytes # (Auto) 1.0 x10^3/uL (1.0-4.8) Monocytes # (Auto) 0.9 x10^3/uL (0.0-1.1) Eosinophils # (Auto) 0.1 x10^3/uL (0.0-0.7) Basophils # (Auto) 0.1 x10^3/uL (0.0-0.2) Glucose (Fingerstick) 118 mg/dL (70-99) Test 11/06/17 17:30 11/06/17 20:15 11/06/17 20:43 11/07/17 02:50 Clostridium difficile Toxin (PCR) Negative (Negative) Troponin I Quantitative 0.017 ng/mL (0.000-0.055) < 0.017 ng/mL (0.000-0.055) Glucose (Fingerstick) 170 mg/dL (70-99) White Blood Count 8.0 x10^3/uL (4.0-11.0) Red Blood Count 6.42 x10^6/uL (4.30-5.70) Hemoglobin 20.3 g/dL (13.0-17.5) Hematocrit 61.5 % (39.0-53.0) Mean Corpuscular Volume 96 fL (79-100) Mean Corpuscular Hemoglobin 32 pg (25-35) Mean Corpuscular Hemoglobin Concent 33 g/dL (31-37) Red Cell Distribution Width 19.7 % (11.5-14.5) Platelet Count 146 x10^3/uL (140-400) Neutrophils (%) (Auto) 91 % (31-73) Lymphocytes (%) (Auto) 6 % (24-48) Monocytes (%) (Auto) 3 % (0-9) Eosinophils (%) (Auto) 0 % (0-3) Basophils (%) (Auto) 0 % (0-3) Neutrophils # (Auto) 7.3 x10^3uL (1.8-7.7) Lymphocytes # (Auto) 0.5 x10^3/uL (1.0-4.8) Monocytes # (Auto) 0.3 x10^3/uL (0.0-1.1) Eosinophils # (Auto) 0.0 x10^3/uL (0.0-0.7) Basophils # (Auto) 0.0 x10^3/uL (0.0-0.2) Sodium Level 137 mmol/L (136-145) Potassium Level 4.3 mmol/L (3.5-5.1) Chloride Level 98 mmol/L (98-107) Carbon Dioxide Level 34 mmol/L (21-32) Anion Gap 5 (6-14) Blood Urea Nitrogen 10 mg/dL (8-26) Creatinine 0.8 mg/dL (0.7-1.3) Estimated GFR (Cockcroft-Gault) 98.9 Glucose Level 178 mg/dL (70-99) Calcium Level 8.6 mg/dL (8.5-10.1) Test 11/07/17 07:53 Glucose (Fingerstick) 161 mg/dL (70-99) NE PHILIP MD Nov 07, 2017 08:21
[2017-11-07] MEDS: DULoxetine HCL 30 MG CAPSULE.DR PO SCH (08:58)
[2017-11-07] MEDS: IV NORMAL SALINE 1000ML BAG 1,000 ML IV SCH ×2 (08:58→18:45)
[2017-11-07] MEDS: fentaNYL PF VIAL 100 MCG/2 ML VIAL IV PRN ×2 (08:58→12:25)
[2017-11-07] MEDS: hydroCHLOROthiazide 25 MG TABLET PO SCH (08:59)
[2017-11-07] MEDS: LOSARTAN POTASSIUM 50 MG TABLET. PO SCH (08:59)
[2017-11-07] MEDS: AZITHROMYCIN 250 MG TABLET. PO SCH (09:00)
[2017-11-07] MEDS: LEVORPHANOL TARTRATE PO SCH ×3 (09:00→21:00)
[2017-11-07] MEDS: GABAPENTIN 400 MG CAPSULE. PO SCH ×3 (09:00→20:57)
--- NOTE | 2017-11-07 09:02 | HP ---
ADMIT DATE: CHIEF COMPLAINT AND HISTORY OF PRESENT ILLNESS: This 57-year-old white male is well known to me from followup in the office. The patient started basically the day before [place] with some nausea. This turned into diarrhea, which is extended into the morning of this dictation. In addition, he began having a dry rattly cough and increasing shortness of breath, which he has been having for a week or so prior, but it got much worse during this time. He does admit to some chills and profound loss of energy with this. He also has been increasingly short of breath with the same. He states that this cough has been predominantly nonproductive. Denies any marked amount of phlegm with it. He denies any vomiting with the nausea and denies any hematochezia or melena with the diarrhea. He was seen in the Emergency Room where he was felt to have an exacerbation of COPD along with acute respiratory failure with needing oxygen on admission at 3 liters per nasal cannula, was admitted for treatment of the same. PAST MEDICAL HISTORY: Remarkable for COPD, hypertension. He has chronic back pain, for which he has been followed by pain clinic for many years. The patient does have a left ankle fracture dating back to earlier this month and is scheduled for surgery with plates the end of next week. PAST SURGICAL HISTORY: Remarkable for an appendectomy, tonsillectomy, lumbar spine surgeries, had prior surgery on his right foot. MEDICATIONS: Brought with the patient, listed on the computer and have been addressed. ALLERGIES: He has no known drug allergies. SOCIAL HISTORY: The patient is 1 pack per day smoker, does not drink or use drugs. He lives at home alone. FAMILY HISTORY: Noncontributory. REVIEW OF SYSTEMS: Complete review of systems is remarkable for again the chills. He denies any changes in vision, etc. He does have the cough with increasing shortness of breath and the cough is predominantly nonproductive. Denies any chest pain or anginal-type symptoms with this. He denies any abdominal pain, however, has had nausea and diarrhea as listed in the history of present illness. He denies any urinary changes including dysuria, hematuria, urgency, frequency. His only pain is chronic back pain, which he feels is stable. He also has some pain in the left ankle where he has the fracture and has been using a walker and a boot until surgery can be done. DERMATOLOGICAL He denies any rash, skin lesions, etc. NEUROLOGIC: Denies any headaches, weakness, sensory changes. PHYSICAL EXAMINATION: GENERAL: He is a well-developed, well-nourished, obese white male, in no acute distress. At the time of my examination, he actually states he feels much better from a breathing standpoint, was actually able to get some sleep overnight. VITAL SIGNS: Stable. He is afebrile. O2 is on 2-1/2 liters per nasal cannula. HEAD, EYES, EARS, NOSE AND THROAT: Unremarkable. NECK: Supple without adenopathy or thyromegaly. CHEST: Reveals decreased breath sounds bilaterally with expiratory wheezing. HEART: Regular rate and rhythm without S3, S4, or murmur. ABDOMEN: Soft, nontender, without hepatosplenomegaly or masses. EXTREMITIES: Without cyanosis, clubbing. He does have some edema of the left ankle as well as rubor present due to the ankle fracture. There does not appear to be any significant deformity. Skin lópez is within normal limits. NEUROLOGIC: He is intact. Review of data includes a chest x-ray that shows no acute changes. He does have chronic bronchitis with chronic interstitial lung disease on my review of the chest x-ray, appears consistent with that. In addition, laboratory lópez remarkable for polycythemia with a hemoglobin of 21.3 on admission, has decreased to 20.3 by the following day with some hydration. I am sure part of it is hydration driven, although he does carry a history of polycythemia in addition and has had to have blood removed for the same. Chemistry panel was remarkable primarily for hyperglycemia. His troponins were negative x 2. He was mildly hyponatremic with a sodium of 133 on admission. Urine toxicology drug screen shows opiates, which he takes at home. Urinalysis essentially unremarkable. C. diff checked since admission is negative. IMPRESSION: 1. Exacerbation of chronic obstructive pulmonary disease with hypoxia and acute respiratory failure. 2. Polycythemia. 3. Diarrhea with dehydration. 4. Other problems listed above. PLAN: The patient has been admitted. Hydration is ongoing. IV steroids have been added as well as antibiotics along with pulmonary toilet and the patient will be monitored, managed and treated appropriately. EN PHILIP MD DR: DUDLEY/sunshine JOB#: [id number] / [id number]
[2017-11-07 11:09] VITALS: BP 137/81
[2017-11-07 15:00] VITALS: BP 133/75
[2017-11-07] MEDS: cefTRIAXone IV Push 1 GM VIAL. IVP SCH (17:00)
[2017-11-07 19:00] VITALS: BP 133/70
[2017-11-07] MEDS: LACTOBACILLUS RHAMNOSUS GG 1 CAPSULE. PO SCH (20:57)
[2017-11-07 23:00] VITALS: BP 162/72
[2017-11-08 02:31] VITALS: BP 140/79
[2017-11-08] MEDS: IV NORMAL SALINE 1000ML BAG 1,000 ML IV SCH (04:29)
[2017-11-08] MEDS: methylPREDNISolone SOD SUCC PF 125 MG/2 ML VIAL. IV SCH (04:54)
[2017-11-08 06:16] LABS: BASO % 0 % (0-3); EOS % 0 % (0-3); HEMATOCRIT 59.7 % (39.0-53.0); HEMOGLOBIN 19.1 g/dL (13.0-17.5); LYMPH # 0.6 x10^3/uL (1.0-4.8); LYMPH % 5 % (24-48); MEAN CORPUSCULAR HEMOGLOBIN 31 pg (25-35); MEAN CORPUSCULAR HGB CONC 32 g/dL (31-37); MEAN CORPUSCULAR VOLUME 96 fL (79-100); MONO % 8 % (0-9); NEUT % 87 % (31-73); PLATELET COUNT 183 x10^3/uL (140-400); RED BLOOD COUNT 6.21 x10^6/uL (4.30-5.70); WHITE BLOOD COUNT 12.6 x10^3/uL (4.0-11.0)
[2017-11-08 07:00] VITALS: BP 135/82
[2017-11-08 07:00] LABS: ALBUMIN 3.4 g/dL (3.4-5.0); ALBUMIN/GLOBULIN RATIO 0.9 (1.0-1.7); CALCIUM 8.7 mg/dL (8.5-10.1); CREATININE 0.8 mg/dL (0.7-1.3); GFR 98.9; POTASSIUM 4.4 mmol/L (3.5-5.1); TOTAL BILIRUBIN 0.9 mg/dL (0.2-1.0); TOTAL PROTEIN 7.3 g/dL (6.4-8.2)
[2017-11-08] MEDS: IPRATRPIUM/ALBUTEROL 0.5/2.5MG 3 ML NEBU. NEB SCH (07:30)
[2017-11-08] MEDS: metFORMIN 500 MG TABLET PO SCH (08:47)
[2017-11-08] MEDS: LEVORPHANOL TARTRATE PO SCH (08:47)
[2017-11-08] MEDS: hydroCHLOROthiazide 25 MG TABLET PO SCH (08:48)
[2017-11-08] MEDS: LOSARTAN POTASSIUM 50 MG TABLET. PO SCH (08:48)
[2017-11-08] MEDS: LACTOBACILLUS RHAMNOSUS GG 1 CAPSULE. PO SCH (08:48)
[2017-11-08] MEDS: DULoxetine HCL 30 MG CAPSULE.DR PO SCH (08:49)
[2017-11-08] MEDS: GABAPENTIN 400 MG CAPSULE. PO SCH (08:49)
[2017-11-08] MEDS: AZITHROMYCIN 250 MG TABLET. PO SCH (08:50)
--- NOTE | 2017-11-08 09:06 | PDOC ---
GENERAL General: see discharge summary. Problems: VITAL SIGNS Vital Signs: Vital Signs Date Time Temp Pulse Resp B/P (MAP) Pulse Ox O2 Delivery O2 Flow Rate FiO2 11/08/17 08:48 82 135/82 11/08/17 07:31 92 Nasal Cannula 3.0 11/08/17 07:00 97.0 17 97.0 I & O I & O Intake and Output 11/08/17 07:00 Intake Total 1420 ml Balance 1420 ml Intake Oral 1420 ml # Voids 5 ALLERGIES Allergies: Allergies Coded Allergies Type Severity Reaction Last Updated Verified No Known Drug Allergies 11/07/14 No MEDS Medications: Current Medications Medications (Trade) Dose Ordered Sig/Sally Start Time Stop Time Status Last Admin Dose Admin Albuterol Sulfate (Ventolin Neb Soln) 2.5 mg Q4HRS 11/06/17 20:00 11/07/17 22:36 DC 11/07/17 00:00 2.5 MG Albuterol/ Ipratropium (Duoneb) 3 ml PRN Q4HRS 11/06/17 16:15 11/06/17 16:31 DC 11/06/17 16:18 3 ML Azithromycin (Zithromax) 500 mg DAILY 11/07/17 09:00 11/08/17 08:50 500 MG Azithromycin 500 mg/Sodium Chloride 250 ml @ 250 mls/hr Q24H 11/06/17 18:00 11/07/17 04:26 DC Ceftriaxone Sodium 1 gm/ Dextrose 50 ml @ 100 mls/hr Q24H 11/06/17 16:15 UNV Ceftriaxone Sodium (Rocephin) 1 gm Q24H 11/06/17 17:00 11/07/17 17:00 1 GM Duloxetine HCl (Cymbalta) 60 mg DAILY 11/07/17 09:00 11/08/17 08:49 60 MG Fentanyl (Duragesic 100mcg/Hr Patch) 1 patch Q3DAYS 11/06/17 17:00 11/06/17 17:13 1 PATCH Fentanyl Citrate (Fentanyl 2ml Vial) 50 mcg PRN Q2HR PRN 11/06/17 14:30 11/07/17 14:29 DC 11/07/17 12:25 50 MCG Gabapentin (Neurontin) 800 mg TID 11/06/17 16:45 11/08/17 08:49 800 MG Hydrochlorothiazide (Hydrodiuril) 25 mg DAILY 11/07/17 09:00 11/08/17 08:48 25 MG Ibuprofen (Motrin) 800 mg PRN TID PRN 11/06/17 16:15 11/07/17 21:04 800 MG Lactobacillus Rhamnosus (Culturelle) 1 cap BID 11/07/17 21:00 11/08/17 08:48 1 CAP Losartan Potassium (Cozaar) 100 mg DAILY 11/07/17 09:00 11/08/17 08:48 100 MG Metformin HCl (Glucophage) 500 mg BIDWMEALS 11/06/17 17:00 11/08/17 08:47 500 MG Methylprednisolone Sodium Succinate (SOLU-Medrol 125MG VIAL) 80 mg Q8HRS 11/06/17 17:00 11/08/17 04:54 80 MG Nicotine (Nicoderm Cq 21mg) 1 patch PRN DAILY PRN 11/06/17 15:00 11/06/17 17:12 1 PATCH Non-Formulary Medication 4 mg TID 11/06/17 21:00 UNV Ondansetron HCl (Zofran) 4 mg PRN Q8HRS PRN 11/06/17 14:30 11/07/17 14:29 DC Promethazine HCl (Phenergan) 25 mg PRN BID PRN 11/06/17 16:45 Sodium Chloride 1,000 ml @ 100 mls/hr Q10H 11/07/17 08:30 11/08/17 04:29 100 MLS/HR Tramadol HCl (Ultram) 50 mg PRN Q4HRS PRN 11/06/17 16:15 11/07/17 17:36 50 MG LAB Lab: Laboratory Tests Test 11/07/17 11:01 11/07/17 16:32 11/07/17 20:14 11/08/17 04:50 Glucose (Fingerstick) 145 mg/dL (70-99) 166 mg/dL (70-99) 198 mg/dL (70-99) White Blood Count 12.6 x10^3/uL (4.0-11.0) Red Blood Count 6.21 x10^6/uL (4.30-5.70) Hemoglobin 19.1 g/dL (13.0-17.5) Hematocrit 59.7 % (39.0-53.0) Mean Corpuscular Volume 96 fL (79-100) Mean Corpuscular Hemoglobin 31 pg (25-35) Mean Corpuscular Hemoglobin Concent 32 g/dL (31-37) Red Cell Distribution Width 20.0 % (11.5-14.5) Platelet Count 183 x10^3/uL (140-400) Neutrophils (%) (Auto) 87 % (31-73) Lymphocytes (%) (Auto) 5 % (24-48) Monocytes (%) (Auto) 8 % (0-9) Eosinophils (%) (Auto) 0 % (0-3) Basophils (%) (Auto) 0 % (0-3) Neutrophils # (Auto) 11.0 x10^3uL (1.8-7.7) Lymphocytes # (Auto) 0.6 x10^3/uL (1.0-4.8) Monocytes # (Auto) 1.0 x10^3/uL (0.0-1.1) Eosinophils # (Auto) 0.0 x10^3/uL (0.0-0.7) Basophils # (Auto) 0.0 x10^3/uL (0.0-0.2) Sodium Level 140 mmol/L (136-145) Potassium Level 4.4 mmol/L (3.5-5.1) Chloride Level 97 mmol/L (98-107) Carbon Dioxide Level 38 mmol/L (21-32) Anion Gap 5 (6-14) Blood Urea Nitrogen 14 mg/dL (8-26) Creatinine 0.8 mg/dL (0.7-1.3) Estimated GFR (Cockcroft-Gault) 98.9 BUN/Creatinine Ratio 18 (6-20) Glucose Level 198 mg/dL (70-99) Calcium Level 8.7 mg/dL (8.5-10.1) Total Bilirubin 0.9 mg/dL (0.2-1.0) Aspartate Amino Transf (AST/SGOT) 20 U/L (15-37) Alanine Aminotransferase (ALT/SGPT) 16 U/L (16-63) Alkaline Phosphatase 62 U/L (46-116) Total Protein 7.3 g/dL (6.4-8.2) Albumin 3.4 g/dL (3.4-5.0) Albumin/Globulin Ratio 0.9 (1.0-1.7) Test 11/08/17 07:18 Glucose (Fingerstick) 181 mg/dL (70-99) NE PHILIP MD Nov 08, 2017 09:05
[2017-11-08 10:10] LABS: PLT ESTIMATE ADEQUATE (ADEQUATE)
[2017-11-08] MEDS ORDERED: AZIT250T6 PO (10:29)
[2017-11-08] MEDS ORDERED: CEFP200T PO (10:33)
[2017-11-08] MEDS ORDERED: PRED-220 PO (10:35)
[2017-11-08 11:06] VITALS: BP 146/84
== END 2017-11-08 11:20 | disposition home or self-care (01) | DRG 189 ==
LOC: ER 12:13 → 5 NORTH 13:45
PROVIDERS: ADMIT Family Medicine; ATTEND Family Medicine
DX: J96.01 Acute respiratory failure with hypoxia (principal); E86.0 Dehydration; D75.1 Secondary polycythemia; J44.1 Chronic obstructive pulmonary disease with (acute) exacerbation; I10 Essential (primary) hypertension; G89.29 Other chronic pain; E11.9 Type 2 diabetes mellitus without complications; F17.210 Nicotine dependence, cigarettes, uncomplicated; Z90.49 Acquired absence of other specified parts of digestive tract
CPT/HCPCS: 36415; 71010; 80048; 80053; 80076; 80307; 81001; 82553; 82962; 83690; 83735; 83880; 84484; 85007; 85025; 87324; 93005; 94640; 94760; 96361; 96374; 96375; J0456; J0696; J2930; J3010; J7030; J7613; J7620; Q0144; 99285-25; G0479

== ENCOUNTER 2018-02-19 06:46 | Day surgery (SDC) | payer MEDICARE, OTHER ==
[2018-02-19] MEDS ORDERED: fentaNYL PF VIAL 100 MCG/2 ML VIAL IV ×2 (07:00)
[2018-02-19] MEDS ORDERED: ONDANSETRON PF 4 MG/2 ML VIAL. IV (07:00)
[2018-02-19] MEDS ORDERED: PROCHLORPERAZINE 10 MG/2 ML VIAL. IV (07:00)
[2018-02-19] MEDS ORDERED: MORPHINE SULFATE 4 MG/ML DISP.SYRIN. IV (07:00)
[2018-02-19] MEDS: IV RINGERS,LACTATED 1000ML 1,000 ML IV (07:56)
[2018-02-19 08:04] LABS: ADD MAN DIFF? NO
[2018-02-19 08:22] LABS: BASO % 1 % (0-3); EOS # 0.2 x10^3/uL (0.0-0.7); EOS % 2 % (0-3); HEMATOCRIT 60.9 % (39.0-53.0); HEMOGLOBIN 20.3 g/dL (13.0-17.5); LYMPH # 1.8 x10^3/uL (1.0-4.8); LYMPH % 19 % (24-48); MEAN CORPUSCULAR HEMOGLOBIN 32 pg (25-35); MEAN CORPUSCULAR HGB CONC 33 g/dL (31-37); MEAN CORPUSCULAR VOLUME 95 fL (79-100); MONO # 1.1 x10^3/uL (0.0-1.1); MONO % 12 % (0-9); NEUT # 6.2 x10^3uL (1.8-7.7); NEUT % 67 % (31-73); PLATELET COUNT 134 x10^3/uL (140-400); RED BLOOD COUNT 6.42 x10^6/uL (4.30-5.70); RED CELL DISTRIBUTION WIDTH 15.9 % (11.5-14.5); WHITE BLOOD COUNT 9.3 x10^3/uL (4.0-11.0)
[2018-02-19] MEDS ORDERED: fentaNYL PF VIAL 100 MCG/2 ML VIAL (08:32)
[2018-02-19] MEDS ORDERED: PROPOFOL 50 ML IV (08:32)
[2018-02-19 08:34] LABS: ANION GAP 6 (6-14); BLOOD UREA NITROGEN 16 mg/dL (8-26); BUN/CREATININE RATIO 16 (6-20); CALCIUM 9.2 mg/dL (8.5-10.1); CARBON DIOXIDE 37 mmol/L (21-32); CHLORIDE 99 mmol/L (98-107); GFR 76.5; GLUCOSE 142 mg/dL (70-99); POTASSIUM 4.4 mmol/L (3.5-5.1); SODIUM 142 mmol/L (136-145)
[2018-02-19 08:38] LABS: ALBUMIN 3.4 g/dL (3.4-5.0); ALK PHOS 70 U/L (46-116); ALT (SGPT) 15 U/L (16-63); AST (SGOT) 19 U/L (15-37); TOTAL BILIRUBIN 0.4 mg/dL (0.2-1.0); TOTAL PROTEIN 6.8 g/dL (6.4-8.2)
[2018-02-19 08:43] LABS: INR 1.1 (0.8-1.1); PARTIAL THROMBOPLASTIN TIME 34 SEC (24-38); PROTHROMBIN TIME PATIENT 13.5 SEC (11.7-14.0)
[2018-02-19] MEDS: ceFAZolin SODIUM 3 GM in IV DEXTROSE 5% 100 ML IV (08:49)
[2018-02-19] MEDS: BUPIVACAINE-EPI 0.25%-1:200000 50 ML VIAL. (09:14)
[2018-02-19 10:07] LABS: POC GLUCOSE 127 mg/dL (70-99)
[2018-02-19] MEDS: LIDOCAINE 1% PF 2 ML VIAL. ID (10:49)
[2018-02-19] MEDS: oxyCODONE/APAP 5/325 1 TAB TABLET PO (10:51)
[2018-02-19] MEDS ORDERED: oxyCODONE/APAP 5/325 1 TAB TABLET PO (11:00)
== END 2018-02-19 11:41 | disposition home or self-care (01) ==
LOC: SURG 06:46
DX: T84.84XA Pain due to internal orthopedic prosthetic devices, implants and grafts, initial encounter (principal); I10 Essential (primary) hypertension; F17.210 Nicotine dependence, cigarettes, uncomplicated; E11.9 Type 2 diabetes mellitus without complications; Y83.8 Other surgical procedures as the cause of abnormal reaction of the patient, or of later complication, without mention of misadventure at the time of the procedure; Y92.89 Other specified places as the place of occurrence of the external cause
CPT/HCPCS: 20680; 36415; 80053; 82306; 82962; 85025; 85610; 85730; J2704; J3010